=== PATIENT | female | born 1995 | race Caucasian/White ===

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

== ENCOUNTER 2020-08-30 11:38 | Emergency (ER) | payer OTHER ==
[~2020-08-30 11:38] MED LIST: CEFUROXIME500 MG PO; COLACE 100MG C100 MG PO; FEOSOL325 MG PO; PYRIDIUM200 MG PO; SYNTHROID150 MCG PO
[2020-08-30 12:50] LABS: HEMOGLOBIN 13.5 gm/dl (12.3-15.3); RED BLOOD COUNT 4.3 M/UL (4.00-5.10); WHITE BLOOD COUNT 8.1 K/UL (4.5-11.0)
[2020-08-30 13:25] LABS: BUN/CREATININE RATIO 15 (0-10)
[2020-08-30] MEDS ORDERED: IBUPROFEN600 MG PO (15:08)
== END 2020-08-30 16:19 | disposition home or self-care (01) ==
LOC: ER1 11:38
PROVIDERS: Internal Medicine
DX: R07.9 Chest pain, unspecified (principal); Z90.49 Acquired absence of other specified parts of digestive tract
CPT/HCPCS: 36415; 71046; 80053; 82550; 82553; 84484; 84703; 85025; 85379; 93005; 96374; 96375; 99285; J1885; J2405

== ENCOUNTER → 2020-10-13 | Outpatient (CLI) | payer OTHER ==
[~2020-10-13] MED LIST changes: +DECADRON6 MG PO; +IBUPROFEN600 MG PO
== END ==
LOC: LAB 14:51
DX: E03.9 Hypothyroidism, unspecified (principal)
CPT/HCPCS: 36415; 84439; 84443

== ENCOUNTER 2020-10-21 02:11 | Emergency (ER) | payer OTHER ==
[~2020-10-21 02:11] MED LIST changes: -DECADRON6 MG PO
[2020-10-21 02:51] LABS: HEMOGLOBIN 14.2 gm/dl (12.3-15.3); RED BLOOD COUNT 4.6 M/UL (4.00-5.10); WHITE BLOOD COUNT 6.2 K/UL (4.5-11.0)
[2020-10-21 03:00] LABS: BUN/CREATININE RATIO 8 (0-10)
[2020-10-21] MEDS ORDERED: DECADRON6 MG PO (05:25)
== END 2020-10-21 06:56 | disposition home or self-care (01) ==
LOC: ER1 02:11
PROVIDERS: Physician Assistant
DX: U07.1 COVID-19 (principal); J12.82 Pneumonia due to coronavirus disease 2019; J45.909 Unspecified asthma, uncomplicated; Z90.49 Acquired absence of other specified parts of digestive tract; Z79.899 Other long term (current) drug therapy; Z88.1 Allergy status to other antibiotic agents
CPT/HCPCS: 71045; 80048; 84703; 85025; 85379; 93005; 99285; J7030; Q9967

== ENCOUNTER → 2021-01-27 | Outpatient (CLI) | payer OTHER ==
[~2021-01-27] MED LIST changes: +DECADRON6 MG PO
== END ==
LOC: LAB 15:38
DX: E05.90 Thyrotoxicosis, unspecified without thyrotoxic crisis or storm (principal)
CPT/HCPCS: 36415; 84439; 84443

== ENCOUNTER 2021-05-14 13:38 | Emergency (ER) | payer OTHER ==
[2021-05-14 14:55] LABS: HEMOGLOBIN 13.2 gm/dl (12.3-15.3); RED BLOOD COUNT 4.2 M/UL (4.00-5.10); WHITE BLOOD COUNT 10.4 K/UL (4.5-11.0)
[2021-05-14 15:19] LABS: BUN/CREATININE RATIO 16 (0-10)
== END 2021-05-14 15:52 | disposition home or self-care (01) ==
LOC: ER1 13:38
PROVIDERS: Emergency Medicine
DX: O16.1 Unspecified maternal hypertension, first trimester (principal); Z3A.10 10 weeks gestation of pregnancy
CPT/HCPCS: 80053; 81001; 83690; 85025; 99284

== ENCOUNTER → 2021-05-17 | Outpatient (CLI) | payer OTHER | LOC: KOH-I 13:48 | DX: R10.9 Unspecified abdominal pain (principal); N26.1 Atrophy of kidney (terminal) | CPT/HCPCS: 76775 ==

== ENCOUNTER → 2021-07-12 | Outpatient (CLI) | payer SELFPAY ==
[2021-07-12 19:29] LABS: HEMOGLOBIN 12.5 gm/dl (12.3-15.3); WHITE BLOOD COUNT 10.7 K/UL (4.5-11.0)
[2021-07-12 19:58] LABS: BUN/CREATININE RATIO 11 (0-10)
== END ==
LOC: LAB 17:59
PROVIDERS: Internal Medicine Nephrology
DX: N28.9 Disorder of kidney and ureter, unspecified (principal)
CPT/HCPCS: 80069; 81001; 82570; 84156; 85025

== ENCOUNTER 2021-10-23 21:14 | Outpatient (CLI) | payer OTHER | END 2021-10-24 11:11 | disposition home or self-care (01) | LOC: GENOP 21:14 | DX: O47.03 False labor before 37 completed weeks of gestation, third trimester (principal); O99.283 Endocrine, nutritional and metabolic diseases complicating pregnancy, third trimester; E89.0 Postprocedural hypothyroidism; O99.343 Other mental disorders complicating pregnancy, third trimester; F32.A Depression, unspecified; Z3A.32 32 weeks gestation of pregnancy | CPT/HCPCS: 81001; 82731; 96372; J0702 ==

== ENCOUNTER → 2021-11-14 | Outpatient (CLI) | payer OTHER ==
[2021-11-14 18:05] LABS: HEMOGLOBIN 11.3 gm/dl (12.3-15.3); RED BLOOD COUNT 3.75 M/UL (4.00-5.10); WHITE BLOOD COUNT 12.8 K/UL (4.5-11.0)
[2021-11-14 18:31] LABS: BUN/CREATININE RATIO 12 (0-10)
== END ==
LOC: GENOP 17:10
PROVIDERS: Obstetrics & Gynecology
DX: O99.891 Other specified diseases and conditions complicating pregnancy (principal); R03.0 Elevated blood-pressure reading, without diagnosis of hypertension; R10.2 Pelvic and perineal pain; O99.283 Endocrine, nutritional and metabolic diseases complicating pregnancy, third trimester; E89.0 Postprocedural hypothyroidism; O99.343 Other mental disorders complicating pregnancy, third trimester; F32.A Depression, unspecified; F41.9 Anxiety disorder, unspecified; Z88.1 Allergy status to other antibiotic agents; Z88.6 Allergy status to analgesic agent; Z3A.35 35 weeks gestation of pregnancy
CPT/HCPCS: 80053; 81001; 82570; 83615; 84156; 84550; 85025; G0463

== ENCOUNTER 2021-11-23 16:52 | Inpatient (IN) | payer OTHER ==
[~2021-11-23] VITALS: Ht 154.9 cm; Wt 93.0 kg
[2021-11-23 17:54] LABS: HEMOGLOBIN 11.4 gm/dl (12.3-15.3); RED BLOOD COUNT 3.85 M/UL (4.00-5.10); WHITE BLOOD COUNT 13.1 K/UL (4.5-11.0)
[2021-11-24] MEDS ORDERED: ZOLOFT100 MG PO (07:54)
[2021-11-24] MEDS ORDERED: SYNTHROID175 MCG PO (07:54)
[2021-11-24] MEDS ORDERED: CYCLOBENZAPRINE10 MG PO (07:57)
[2021-11-25 04:53] LABS: HEMOGLOBIN 10.5 gm/dl (12.3-15.3)
[2021-11-26] MEDS ORDERED: IBUPROFEN800 MG PO (05:22)
[2021-11-26] MEDS ORDERED: COLACE100 MG PO (05:22)
[2021-11-26] MEDS ORDERED: HEMOCYTE324 MG PO (05:22)
== END 2021-11-26 15:04 | disposition home or self-care (01) | DRG 807 ==
LOC: GENOP 16:52 → OB 17:08
PROVIDERS: Obstetrics & Gynecology; ADMIT Obstetrics & Gynecology
PROC: 10E0XZZ Delivery of Products of Conception, External Approach (ICD-10-PCS; principal; 2021-11-24)
PROC: 3E033VJ Introduction of Other Hormone into Peripheral Vein, Percutaneous Approach (ICD-10-PCS; 2021-11-24)
PROC: 0HQ9XZZ Repair Perineum Skin, External Approach (ICD-10-PCS; 2021-11-24)
PROC: 4A1HXCZ Monitoring of Products of Conception, Cardiac Rate, External Approach (ICD-10-PCS; 2021-11-24)
PROC: 4A1HXFZ Monitoring of Products of Conception, Cardiac Rhythm, External Approach (ICD-10-PCS; 2021-11-24)
DX: O13.4 Gestational [pregnancy-induced] hypertension without significant proteinuria, complicating childbirth (principal); Z37.0 Single live birth; O99.52 Diseases of the respiratory system complicating childbirth; O99.344 Other mental disorders complicating childbirth; F41.8 Other specified anxiety disorders; O99.284 Endocrine, nutritional and metabolic diseases complicating childbirth; E03.9 Hypothyroidism, unspecified; K59.09 Other constipation; O99.824 Streptococcus B carrier state complicating childbirth; Z3A.37 37 weeks gestation of pregnancy; Z88.1 Allergy status to other antibiotic agents; Z98.890 Other specified postprocedural states; O70.0 First degree perineal laceration during delivery; Z28.310 Unvaccinated for COVID-19
CPT/HCPCS: 81001; 85014; 85018; 85025; 90715; 96372; J2590; J7120